=== PATIENT | male | born 1955 | race American Indian/Alaskan Native ===

== ENCOUNTER 2018-05-16 08:18 | Emergency (ER) | payer MEDICAID ==
--- NOTE | 2018-05-16 09:18 | C.PDOC ---
History Of Present Illness 63 y/o male with PMH of HTN and substance abuse presents to the ED for medication refill. Patient ran out of his hypertension medication 4 days ago, which was prescribed to him from rehab which he was recently released from. Unable to remember the name of the medication. Pt has not used cocaine or heroin in over 1 month. Reports one brief episode of dizziness yesterday that lasted less than 5 seconds, but is otherwise asymptomatic. Has not checked blood pressure at home. Denies fever, chills, chest pain, vision changes, headache, abdominal pain, N/V, changes in urine output, weakness, numbness, paresthesias, or any other associated symptoms. Time Seen by Provider: 05/16/18 09:11 Chief Complaint (Nursing): High Blood Pressure Past Medical History Reviewed: Historical Data, Nursing Documentation, Vital Signs Vital Signs: Last Vital Signs Temp 98.3 F 05/16/18 08:26 Pulse 97 H 05/16/18 08:26 Resp 19 05/16/18 08:26 BP 186/105 H 05/16/18 08:26 Pulse Ox 100 05/16/18 08:26 - Medical History PMH: HTN Family History: States: No Known Family Hx - Social History Hx Alcohol Use: No Hx Substance Use: Yes - Immunization History Hx Tetanus Toxoid Vaccination: Yes Hx Influenza Vaccination: No Hx Pneumococcal Vaccination: No Review Of Systems Except As Marked, All Systems Reviewed And Found Negative. Constitutional: Negative for: Fever, Chills Eyes: Negative for: Vision Change Cardiovascular: Negative for: Chest Pain, Palpitations, Light Headedness Respiratory: Negative for: Cough, Shortness of Breath, Pleuritic Pain Gastrointestinal: Negative for: Nausea, Vomiting, Abdominal Pain Genitourinary: Negative for: Dysuria, Frequency, Other (no changes in urine output) Musculoskeletal: Negative for: Neck Pain, Shoulder Pain, Back Pain Skin: Negative for: Rash Neurological: Negative for: Weakness, Numbness, Incoordination, Change in Speech, Confusion, Seizures, Headache, Dizziness Physical Exam - Physical Exam Appears: Well, Non-toxic, No Acute Distress Skin: Normal Color, Warm, Dry Head: Atraumatic, Normacephalic Eye(s): bilateral: Normal Inspection, PERRL, EOMI Ear(s): Bilateral: Normal Nose: Normal Throat: Normal Neck: Normal, Supple Lymphatic: Normal Exam Chest: No Tenderness Cardiovascular: Rhythm Regular Respiratory: Normal Breath Sounds Gastrointestinal/Abdominal: Normal Exam, Bowel Sounds (normoactive), Soft, No Tenderness Back: Normal Inspection, No CVA Tenderness Extremity: Normal ROM, Capillary Refill (<2s) Extremity: Bilateral: Atraumatic, No Pedal Edema, Normal Color And Temperature, Normal ROM Pulses: Left Radial: Normal, Right Radial: Normal, Left Dorsalis Pedis: Normal, Right Dorsalis Pedis: Normal Neurological/Psych: Oriented x3, Normal Speech, Normal Cognition, Normal Cranial Nerves, Cerebellar Signs, Normal Motor, Normal Sensation Gait: Steady Other Neurological Findings: No Facial Palsy, No Tongue Deviation Extremity: Right: No Drift, Left: No Drift, Upper: No Drift, Lower: No Drift ED Course And Treatment O2 Sat by Pulse Oximetry: 100 Medical Decision Making Medical Decision Making: Initial Plan: * Repeat BP * HCTZ Patient is asymptomatic and seeking prescription for HTN. Pt is unsure what medication he was taking before. Will give prescription for daily HCTZ 12.5mg and recommend followup in clinic to establish care. Diagnostic testing results and plan of care discussed with patient, and strict instructions given regarding prescriptions, importance of follow up, and signs to return to Emergency Department, to include dizziness, headache, vision changes, chest pain, SOB, or any other new/worsening symptoms. Patient verbalizes understanding of discussion. Patient A&Ox3, ambulating with steady gait, stable for discharge home. Disposition - Disposition Referrals: [facility] [Outside] [facility] [Outside] Disposition: HOME/ ROUTINE Disposition Time: 09:55 Condition: IMPROVED Additional Instructions: Take 1 tab HCTZ daily in the morning Followup with the clinic within 2 days Return to ER for any new/worsening symptoms Prescriptions: Hydrochlorothiazide [Microzide] 12.5 mg PO DAILY #30 cap Instructions: High Blood Pressure (DC) Forms: General Discharge Instructions, [facility] (Green[place]ic), Work Excuse - Clinical Impression Clinical Impression: Medication refill
[2018-05-16 09:23] VITALS: RESP 18
[2018-05-16 09:44] VITALS: BP 158/94; PULSE 72; TEMP 98
[2018-05-17 13:30] VITALS: O2SAT 100
== END 2018-05-16 09:57 | disposition home or self-care (01) ==
LOC: C.ER 08:18
DX: Z76.0 Encounter for issue of repeat prescription (principal)